=== PATIENT | male | born 1965 | race Caucasian/White ===

== ENCOUNTER → 2018-04-30 | Outpatient (REF) | payer OTHER | LOC: M LAB REF 12:32 | PROVIDERS: ATTEND Nurse Practitioner Adult Health | DX: R09.81 Nasal congestion (principal) ==

== ENCOUNTER → 2018-05-16 | Outpatient (CLI) | payer OTHER ==
--- NOTE | 2018-05-16 09:58 | REP ---
MAXILLOFACIAL CT WITHOUT CONTRAST: HISTORY: Chronic maxillary sinusitis. The frontal sinuses are hypoplastic. Diffuse sinus mucosal thickening is present. There is complete opacification of the frontal and right maxillary sinuses. There is almost complete opacification of the ethmoid , sphenoid and left maxillary sinuses. Mucosal thickening involves the osteomeatal units. The uncinate processes are incompletely seen. This is likely due to demineralization secondary to chronic sinusitis. The middle and inferior nasal turbinates are partially paradoxical. The nasal septum is midline. The cribriform plate, medial vargas of the orbits and optic canals are intact. The carotid canals form a segment of the posterolateral vargas of the sphenoid sinus. The soft tissue density is present in the nasal passage consistent with polyps. IMPRESSION:1. Sinus mucosal thickening as described above. 2. There is soft tissue densities in the nasal passage consistent with polyps. Electronically Signed by Brennen Samuel MD 05/16/2018 10:07 A
== END ==
LOC: M RAD 09:02
PROVIDERS: ATTEND Otolaryngology
DX: J32.0 Chronic maxillary sinusitis (principal); J33.9 Nasal polyp, unspecified

== ENCOUNTER 2018-06-16 09:01 | Day surgery (SDC) | payer OTHER ==
[~2018-06-16] VITALS: Ht 167.6 cm; Wt 69.9 kg
[~2018-06-16 09:01] MED LIST: NS 1,000 ML IV SCH
[2018-06-16] MEDS ORDERED: PROPOFOL 200 MG/20 ML VIAL ONE (09:02)
--- NOTE | 2018-06-16 10:05 | ROOR ---
Patient Name: Reynaldo Dunlap Procedure Date: 06/16/2018 9:50 AM Date of : 1965 Age: 52 Room: [facility] Gender: Male Note Status: Finalized Procedure: Total Colonoscopy to Cecum Indications: Screening for colorectal malignant neoplasm Providers: Ervin Espinoza MD Referring MD: Veda Reese NP Requesting Provider: Medicines: Monitored Anesthesia Care Complications: No immediate complications. Procedure: Pre-Anesthesia Assessment: - The heart rate, respiratory rate, oxygen saturations, blood pressure, adequacy of pulmonary ventilation, and response to care were monitored throughout the procedure. The Colonoscope was introduced through the anus and advanced to the cecum, identified by appendiceal orifice and ileocecal valve. The colonoscopy was performed without difficulty. The patient tolerated the procedure well. The quality of the bowel preparation was excellent. Findings: The perianal and digital rectal examinations were normal. No other significant abnormalities were identified in a careful examination of the remainder of the colon. The exam was otherwise without abnormality on direct and retroflexion views. Impression: - The examination was otherwise normal on direct and retroflexion views. - No specimens collected. - The exam was otherwise normal to the cecum. Recommendation: - Patient has a contact number available for emergencies. The signs and symptoms of potential delayed complications were discussed with the patient. Return to normal activities tomorrow. Written discharge instructions were provided to the patient. - High fiber diet. - Discharge patient to home. - Continue present medications. - Repeat colonoscopy in 10 years for screening purposes. - Return to referring physician. - The findings and recommendations were discussed with the patient's family. Ervin Espinoza MD Ervin Espinoza MD 06/16/2018 10:05:48 AM Electronically signed by Ervin Espinoza MD Number of Addenda: 0 Note Initiated On: 06/16/2018 9:50 AM Estimated Blood Loss: Estimated blood loss: none.
[2018-06-16 10:30] VITALS: BP 140/78
== END 2018-06-16 10:36 | disposition home or self-care (01) ==
LOC: M OPP 09:01
PROVIDERS: ATTEND Internal Medicine Gastroenterology
DX: Z12.11 Encounter for screening for malignant neoplasm of colon (principal)

== ENCOUNTER 2018-06-24 07:06 | Day surgery (SDC) | payer OTHER ==
[~2018-06-24] VITALS: Ht 167.6 cm; Wt 71.3 kg
[~2018-06-24 07:06] MED LIST changes: +LR 1,000 ML IV ONE; -NS 1,000 ML IV SCH; +dexameTHASONE 4 MG/ML 1ML VIAL (J1100) IV ONE
[2018-06-24] MEDS ORDERED: LIDOCAINE W/EPINEPHRINE 1% 20ML VIAL As Ordered ONE (07:54)
[2018-06-24] MEDS ORDERED: METHYLENE BLUE 0.5% (5MG/ML) 10 ML AMP (PROVAYBLUE)(Q9968 PER 1MG) As Ordered ONE (07:54)
[2018-06-24] MEDS ORDERED: EPINEPHrine 1MG/ML INJ 30ML MD-VIAL As Ordered ONE (07:55)
[2018-06-24] MEDS ORDERED: SODIUM CHLORIDE 0.9% NASAL GEL 15GM (AYR) As Ordered ONE (07:57)
[2018-06-24] MEDS ORDERED: LIDOCAINE 2% INJ 100 MG/5 ML SDV (FOR ANES.) As Ordered ONE (09:29)
[2018-06-24] MEDS ORDERED: MIDAZOLAM INJ 2 MG/2 ML VIAL (J2250) As Ordered ONE (09:29)
[2018-06-24] MEDS ORDERED: ONDANSETRON 4MG/2ML VIAL (J2405) As Ordered ONE (09:29)
[2018-06-24] MEDS ORDERED: ROCURONIUM BROMIDE 50 MG/5 ML VIAL As Ordered ONE (09:29)
[2018-06-24] MEDS ORDERED: SUGAMMADEX SODIUM 500 MG/5 ML VIAL (BRIDION) As Ordered ONE (09:29)
[2018-06-24] MEDS ORDERED: PROPOFOL 200 MG/20 ML VIAL As Ordered ONE (09:29)
[2018-06-24] MEDS ORDERED: fentaNYL 250 MCG/5 ML INJECTION (J3010) As Ordered ONE (09:29)
[2018-06-24] MEDS ORDERED: dexameTHASONE 4 MG/ML 1ML VIAL (J1100) As Ordered ONE (09:29)
[2018-06-24] MEDS ORDERED: LABETALOL HCL 100 MG/20 ML VIAL As Ordered ONE (11:00)
[2018-06-24] MEDS ORDERED: fentaNYL 100 MCG/2 ML INJECTION (J3010) As Ordered ONE (11:42)
[2018-06-24] MEDS ORDERED: ONDANSETRON 4MG/2ML VIAL (J2405) IV PRN (12:00)
[2018-06-24] MEDS ORDERED: LR 1,000 ML IV SCH ×2 (12:00)
[2018-06-24] MEDS ORDERED: fentaNYL 100 MCG/2 ML INJECTION (J3010) IV PRN (12:00)
[2018-06-24] MEDS: NORCO, ANEXSIA 5/325MG TABLET (HYDROcodone/ACETAMINOPHEN) PO PRN ×2 (12:08→13:52)
[2018-06-24] MEDS ORDERED: NORCO, ANEXSIA 5/325MG TABLET (HYDROcodone/ACETAMINOPHEN) As Ordered ONE (13:50)
[2018-06-24 14:17] VITALS: BP 141/96
--- NOTE | 2018-06-25 15:02 | RO ---
DATE OF OPERATION: 06/24/2018 PREOPERATIVE DIAGNOSES: 1. Nasal polyposis. 2. Chronic maxillary sinusitis. 3. Chronic ethmoid sinusitis. 4. Chronic sphenoid sinusitis. 5. Chronic rhinitis. POSTOPERATIVE DIAGNOSES: 1. Nasal polyposis. 2. Chronic maxillary sinusitis. 3. Chronic ethmoid sinusitis. 4. Chronic sphenoid sinusitis. 5. Chronic rhinitis. PROCEDURES PERFORMED: 1. Endoscopic maxillary antrostomy with soft tissue removal. 2. Bilateral anterior and posterior ethmoidectomy. 3. Endoscopic right sphenoidotomy. 4. Implantation of the Propel stents for the left and the right osteomeatal complexes. 5. Stereotactic surgery using the Brainlab protocol. ANESTHESIA: General. CLINICAL PREAMBLE: This 52-year-old man presented to the office with history of chronic nasal congestion. Physical examination revealed bilateral nasal polyposis. CT scan of the sinuses revealed diffuse nasal polyposis with pansinusitis. Management options, including the surgery listed above, have been discussed. The patient understood and consented to the procedure. DESCRIPTION OF OPERATION: Operating room (OR) narration: The patient was identified in preoperative holding and brought to the operating room in stable condition. In supine position on the operating table, the patient received general anesthesia followed by orotracheal intubation without incident. The patient was prepped and draped in the usual fashion for the procedure. Both eyes were protected using the lubricant, and then the Tegaderm was applied to each eye. The headband for the Brainlab system was applied to the forehead. Good surface marking was obtained between the Brainlab ray sensors, as well as the actual surface examining of the patient. Both sides of the nasal cavity were packed using 1:1000 epinephrine solution. After a waiting period, the pledgets were removed. Using the 0-degree nasal endoscope, both sides of the nasal cavity were inspected. Diffuse nasal polyposis was noted. The polyps in each side of the nasal cavity were infiltrated with % lidocaine with 1:100,000 epinephrine. Using the Axel microdebrider, the polyp in the right nasal cavity was successfully debrided. The uncinate process was identified. The right maxillary antrum was also identified using the 30-degree rigid nasal endoscope and confirmed with the palpation with the ball-tip osteum seeker. Right maxillary antrostomy was performed with soft tissue removal in order to debride clear of the polypoid degeneration around the antrostomy area. Additional polyps were encountered and debrided out of the right maxillary sinus cavity. The right sinus cavity was then copiously irrigated using warm saline solution to clear the inspissated mucus. At this time, the right ethmoidal bulla was identified and taken down, along with the polypoid mucosa. Diseased anterior ethmoid air cells were taken down. Basal lamella was identified and penetrated. Diseased posterior ethmoid air cells were also removed. Polyposis was noted to be emanating from the anterior surface of the right sphenoid rostrum. The polyps were removed from the anterior surface of the right sphenoid. This allowed clearance of the pathway to the right sphenoid osteum. At this time, the right nasal cavity was packed using pledgets soaked in 1000 epinephrine. The same procedure was then carried out to the left side of the nasal cavity. The left maxillary antrostomy with soft tissue removal was performed. The polypoid tissue was debrided out of the left maxillary sinus cavity, as well. The left ethmoidalis bulla was identified and taken down. Diseased left anterior ethmoid air cells were removed. Left basal lamella was identified and penetrated. Posterior ethmoid air cells with polypoid disease were also then resected, as well. The left nasal cavity was then packed using pledgets soaked in 1000 epinephrine. At this time, hemostasis was achieved. Pledgets were removed. The Propel stents were implanted into the left and the right osteomeatal complexes to ensure medialization of the middle nasal turbinates. At the end of the procedure, sponge and instrument counts were correct. No complication was encountered. ESTIMATED BLOOD LOSS: Was approximately 50 mL. General anesthesia was reversed, and the patient was extubated and brought to the recovery room in stable condition. In the recovery area, the patient exhibited full and symmetrical extraocular motion with no evidence of periorbital ecchymosis.
== END 2018-06-24 14:35 | disposition home or self-care (01) ==
LOC: M SDC 07:06
PROVIDERS: ATTEND Otolaryngology
DX: J33.9 Nasal polyp, unspecified (principal); J32.0 Chronic maxillary sinusitis; J32.2 Chronic ethmoidal sinusitis; J32.3 Chronic sphenoidal sinusitis; J31.0 Chronic rhinitis; J45.909 Unspecified asthma, uncomplicated
CPT/HCPCS: 31255; 31267; 88305; C2625; J1100; J2250; J2405; J3010; Q9968

== ENCOUNTER → 2019-02-03 | Outpatient (REF) | payer OTHER ==
[2019-02-05 09:14] LABS: LDL DIRECT 130 mg/dL (0-99)
== END ==
LOC: M LAB REF 17:09
PROVIDERS: ATTEND Nurse Practitioner Adult Health
DX: E78.2 Mixed hyperlipidemia (principal)

== ENCOUNTER → 2020-07-09 | Outpatient (CLI) | payer SELFPAY | LOC: M LABSMTC 09:38 | PROVIDERS: ATTEND Pediatrics | DX: Z11.52 Encounter for screening for COVID-19 (principal) ==

== ENCOUNTER 2022-07-21 08:51 | Emergency (ER) | payer OTHER ==
[~2022-07-21] VITALS: Ht 167.6 cm; Wt 75.0 kg
[2022-07-21] MEDS ORDERED: MONT10TA97 PO (09:08)
[2022-07-21] MEDS ORDERED: SYMB16INH PO (09:08)
[2022-07-21 11:15] VITALS: BP 115/87
== END 2022-07-21 11:15 | disposition home or self-care (01) ==
LOC: M ED 08:51
DX: S82.831A Other fracture of upper and lower end of right fibula, initial encounter for closed fracture (principal); S92.151A Displaced avulsion fracture (chip fracture) of right talus, initial encounter for closed fracture; X50.0XXA Overexertion from strenuous movement or load, initial encounter; Y92.89 Other specified places as the place of occurrence of the external cause; Y93.89 Activity, other specified; Y99.8 Other external cause status; Z88.0 Allergy status to penicillin; Z79.899 Other long term (current) drug therapy

== ENCOUNTER → 2024-05-18 | Outpatient (CLI) | payer OTHER ==
[~2024-05-18] MED LIST changes: -LR 1,000 ML IV ONE; +MONT10TA97 PO; +SYMB16INH PO; -dexameTHASONE 4 MG/ML 1ML VIAL (J1100) IV ONE
== END ==
LOC: M RAD 15:56
PROVIDERS: ATTEND Physician Assistant Medical
DX: K40.90 Unilateral inguinal hernia, without obstruction or gangrene, not specified as recurrent (principal)